=== PATIENT | male | born 1965 | race Caucasian/White ===

== ENCOUNTER 2018-03-29 19:16 | Emergency (ER) | payer OTHER ==
[2018-03-29 19:54] LABS: #Basophils 0.1 thou/uL (0.0-0.2); #Eosinphils 0.3 thou/uL (0.0-0.7); #Monocytes 0.8 thou/uL (0.11-0.59); #Neutrophils 6.3 thou/uL (1.40-6.50); %Basophils 0.8 % (0.0-1.0); %Eosinophils 2.9 % (0.0-10.0); %Lymphocytes 28.5 % (21.0-51.0); %Monocytes 7.8 % (0.0-10.0); Hemoglobin 15.7 g/dL (14.0-18.0); Mean Corpuscular HGB CONC 33.8 g/dL (32.0-36.0); Mean Corpuscular Hemoglobin 28.8 pg (27.0-31.0); Mean Corpuscular Volume 85.2 fL (78.0-98.0); Mean Platelet Volume 7.8 fL (7.4-10.4); Platelet Count 227 thou/uL (130-400); RBC Distribution Width 11.8 % (11.5-14.5); Red Blood Cell (RBC) Count 5.46 mill/uL (4.70-6.10); White Blood Cell (WBC) Count 10.5 thou/uL (4.8-10.8)
--- NOTE | 2018-03-29 20:03 | RAD ---
CHEST TWO VIEW 03/29/18 HISTORY: Chest pain. COMPARISON: None. FINDINGS: Lungs are clear. No pneumothorax or effusion. The cardiac silhouette and mediastinal contours are wit hin normal limits. IMPRESSION: No acute intrathoracic abnormality. POS: [facility]
[2018-03-29 20:16] LABS: ALT (SGPT) 124 U/L (8-55); AST (SGOT) 71 U/L (5-34); Albumin 4.9 g/dL (3.5-5.0); Alkaline Phosphatase 85 U/L (40-150); Anion Gap 12 mmol/L (10-20); BUN (Urea Nitrogen) 16 mg/dL (8.4-25.7); Bilirubin, Total 0.6 mg/dL (0.2-1.2); CK (CPK) 183 U/L (30-200); Calc. Creatinine Clearance 0 mL/min (70-130); Calcium 10.4 mg/dL (7.8-10.44); Carbon Dioxide 27 mmol/L (22-29); Chloride 104 mmol/L (98-107); Estimated GFR-MDRD 65; Globulin 3.2 g/dL (2.4-3.5); Glucose 94 mg/dL (70-105); Potassium 4.4 mmol/L (3.5-5.1); Protein, Total 8.1 g/dL (6.0-8.3); Sodium 139 mmol/L (136-145)
[2018-03-29 20:18] LABS: CKMB 2.4 ng/mL (0-6.6)
[2018-03-29 20:45] LABS: Hemoglobin A1c 5.4 % (4.0-6.0)
--- NOTE | 2018-03-29 21:14 | ULT ---
GALLBLADDER ULTRASOUND: 03/29/18 HISTORY: 52-year-old male with history of right upper quadrant pain. Coarse liver echogenicity, evidence for nonspecific hepatic parenchymal process. The gallbladder demo nstrates no evidence of gallstones, wall thickening, edema or pericholecystic fluid. Common bile duct within normal limits. The visualized pancreas and right kidney are unremarkable. No right upper quad rant abnormal fluid collection. IMPRESSION: Somewhat coarse heterogeneous liver echogenicity, evidence for nonspecific hepatic parenchymal proces s. No evidence of gallstones or other acute process. POS: [facility]
[2018-03-29 21:55] LABS: Bilirubin Negative (Negative); Blood, Urine Negative (Negative); Clarity CLEAR (Clear); Glucose, Urine (Dipstick) Negative (Negative); Leukocyte Negative (Negative); Nitrite Negative (Negative); Protein, Urine (Dipstick) Negative (Neg-Trace); Specific Gravity, Urine 1.017 (1.002-1.036); Urobilinogen 0.2 mg/dL (0.2-1.0)
== END 2018-03-29 22:03 | disposition home or self-care (01) ==
LOC: ERS 19:16
DX: R07.89 Other chest pain (principal); R79.89 Other specified abnormal findings of blood chemistry; I10 Essential (primary) hypertension; F41.9 Anxiety disorder, unspecified; E78.00 Pure hypercholesterolemia, unspecified; Z79.899 Other long term (current) drug therapy
CPT/HCPCS: 36415; 36416; 71046; 76705; 80053; 81003; 82553; 83036; 83690; 84484; 85025; 85379; 93005

== ENCOUNTER 2018-08-04 16:26 | Inpatient (IN) | payer OTHER ==
[~2018-08-04 16:26] MED LIST: Iopamidol 300 61% 100 ML VIAL FS ONE
[2018-08-04] MEDS ORDERED: Morphine 4 MG/ML VIAL ONE (17:25)
[2018-08-04] MEDS ORDERED: Pantoprazole 40 MG VIAL ONE (17:25)
[2018-08-04 17:27] LABS: #Basophils 0.2 thou/uL (0.0-0.2); #Eosinphils 0.5 thou/uL (0.0-0.7); #Lymphocytes 2.8 thou/uL (1.20-3.40); #Monocytes 0.8 thou/uL (0.11-0.59); #Neutrophils 5.3 thou/uL (1.40-6.50); %Basophils 1.7 % (0.0-1.0); %Eosinophils 5.2 % (0.0-10.0); %Lymphocytes 29.2 % (21.0-51.0); %Monocytes 8.6 % (0.0-10.0); %Neutrophils 55.3 % (42.0-75.0); Hemoglobin 16.8 g/dL (14.0-18.0); Mean Corpuscular HGB CONC 33.3 g/dL (32.0-36.0); Mean Corpuscular Hemoglobin 28.3 pg (27.0-31.0); Mean Corpuscular Volume 85.1 fL (78.0-98.0); Mean Platelet Volume 7.5 fL (7.4-10.4); Platelet Count 237 thou/uL (130-400); RBC Distribution Width 12.9 % (11.5-14.5); Red Blood Cell (RBC) Count 5.92 mill/uL (4.70-6.10); White Blood Cell (WBC) Count 9.7 thou/uL (4.8-10.8)
[2018-08-04 17:46] LABS: ALT (SGPT) 327 U/L (8-55); AST (SGOT) 254 U/L (5-34); Alkaline Phosphatase 117 U/L (40-150); Anion Gap 18 mmol/L (10-20); BUN (Urea Nitrogen) 17 mg/dL (8.4-25.7); Bilirubin, Total 1.3 mg/dL (0.2-1.2); Calc. Creatinine Clearance 0 mL/min (70-130); Calcium 10.7 mg/dL (7.8-10.44); Carbon Dioxide 21 mmol/L (22-29); Chloride 103 mmol/L (98-107); Estimated GFR-MDRD 63; Globulin 3.7 g/dL (2.4-3.5); Glucose 97 mg/dL (70-105); Lipase 39 U/L (8-78); Potassium 3.9 mmol/L (3.5-5.1); Protein, Total 8.7 g/dL (6.0-8.3); Sodium 138 mmol/L (136-145)
--- NOTE | 2018-08-04 18:48 | RAD ---
AP CHEST: History: Hypertension. Right upper quadrant pain. Abdominal pain. FINDINGS: AP portable view of the chest obtained. The lungs are well aerated. No evidence of active intrathoracic disease seen. No evidence of effusion s, pneumonia, or pneumothorax seen. IMPRESSION: Unremarkable AP view chest. POS: [facility]
--- NOTE | 2018-08-04 19:00 | ULT ---
EXAM: RIGHT UPPER QUADRANT ULTRASOUND: History: Abdominal pain, nausea, and vomiting. Technique: Multiple longitudinal and transverse images of the right upper quadrant of the abdomen is obtained using a multihertz curvilinear transducer. Real-time, color flow, and spectral waveform dopp ler analysis used to evaluate the right upper quadrant. FINDINGS: Images demonstrate fibrofatty changes seen in the liver. There is a small area of hypodensity seen al clint the medial posterior aspect of the hepatic parenchyma adjacent to the gallbladder. This may repre sent a hepatic parenchymal mass or lesion. No evidence of intrahepatic biliary dilatation seen. The common bile duct is of normal size measuring 5.4 mm. No evidence of gallstones seen. Normal hepatopedal flow is seen. The pancreas is difficult to assess due to overlying bowel gas. The right kidney is unremarkable. IMPRESSION: Hypoechoic lesion measuring approximately 2 x 1.3 cm within the hepatic parenchyma. POS: [facility]
[2018-08-04] MEDS ORDERED: Lorazepam 2 MG/ML VIAL ONE (20:21)
--- NOTE | 2018-08-04 23:04 | PDOC.FPRHP ---
- History of Present Illness Chief Complaint: Abdominal Pain History of Present Illness: Mr Heller is a 52yo male with pmh of HTN, HLD presenting with constant burning abdominal pain. Report abdominal pain has been present after 5 minutes after meals for the last several months but usually only lasts 10-15min. Today it lasted much longer. It does not radiate. Reports 20lb wt loss over the last 2 weeks. Has had normal PO intake during this time with the exception of the last 2 days in which appetite has been decreased. BP is elevated. Pt reports not taking Amlodipine Sunday. ED Course: Ativan 1mg IV for Anxiety related to contrast for CT. Protonix 40mg. 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 Former smoker for 35yrs, 2 pks per day. Quit 3 years ago - Review of Systems General: reports: weight/appetite/sleep changes (20lb wt loss over last 2 weeks) . denies: fever/chills Eyes: denies: eye pain, vision changes ENT: denies: nasal congestion, rhinorrhea Respiratory: denies: cough, congestion, shortness of breath Cardiovascular: reports: palpitation (when having burning pain). denies: chest pain, edema Gastrointestinal: reports: abdominal pain. denies: nausea, vomiting, diarrhea, constipation Genitourinary: denies: dysuria, other (no hematuria) Skin: denies: rashes, lesions Musculoskeletal: denies: pain, swelling Neurological: denies: numbness, weakness Psychological: reports: anxiety. denies: depression - Vital signs BP: 177/104 HR: 72 RR: 16 Tmax: 97.9 Pox: 94% on RA Wt: 102kg - Physical Exam Constitutional: NAD, awake, alert and oriented, well developed HEENT: normocephalic and atraumatic, conjunctiva clear, MMM, oropharynx clear Neck: supple, trachea midline Heart: RRR, no murmurs/rubs/gallops Lungs: CTAB, no respiratory distress Abdomen: soft, bowel sounds present -Abdomen: Marked tenderness with palpation of upper right quadrant. No rebound or rigidity. Musculoskeletal: normal structure, normal tone, ROM grossly normal Neurological: no focal deficit Skin: no rash/lesions, good turgor, capillary refill <2 seconds Psychiatric: normal mood and affect, good judgment and insight, intact recent and remote memory FMR H&P: Results - Labs Result Diagrams: 08/04/18 17:20 08/05/18 08:19 Lab results: WBC 9.7 thou/uL (4.8-10.8) 08/04/18 17:20 Hgb 16.8 g/dL (14.0-18.0) 08/04/18 17:20 Hct 50.4 % (42.0-52.0) 08/04/18 17:20 MCV 85.1 fL (78.0-98.0) 08/04/18 17:20 Plt Count 237 thou/uL (130-400) 08/04/18 17:20 Neutrophils % 55.3 % (42.0-75.0) 08/04/18 17:20 Sodium 138 mmol/L (136-145) 08/04/18 17:20 Potassium 3.9 mmol/L (3.5-5.1) 08/04/18 17:20 Chloride 103 mmol/L (98-107) 08/04/18 17:20 Carbon Dioxide 21 mmol/L (22-29) L 08/04/18 17:20 BUN 17 mg/dL (8.4-25.7) 08/04/18 17:20 Creatinine 1.22 mg/dL (0.7-1.3) 08/04/18 17:20 Glucose 97 mg/dL (70-105) 08/04/18 17:20 Calcium 10.7 mg/dL (7.8-10.44) H 08/04/18 17:20 Total Bilirubin 1.3 mg/dL (0.2-1.2) H 08/04/18 17:20 AST 254 U/L (5-34) H 08/04/18 17:20 ALT 327 U/L (8-55) H 08/04/18 17:20 Alkaline Phosphatase 117 U/L (40-150) 08/04/18 17:20 Serum Total Protein 8.7 g/dL (6.0-8.3) H 08/04/18 17:20 Albumin 5.0 g/dL (3.5-5.0) 08/04/18 17:20 Lipase 39 U/L (8-78) 08/04/18 17:20 - Radiology Interpretation Chest x-ray Status: report reviewed by me Additional comment: No acute process CT scan - abdomen Status: report reviewed by me Additional comment: Subtle possible perigallbladder hepatic lesion. Small (11mm) right adrenal lesion US - abdomen Status: report reviewed by me Additional comment: Hypoechoic lesion measuring approx 2 x 1.3cm within the heptic parenchyma. Fibrofatty changes in liver. FMR H&P: A/P - Problem List (1) Hepatic lesion Current Visit: Yes Status: Acute Code(s): K76.9 - LIVER DISEASE, UNSPECIFIED - Plan 52yo male with pmh of HTN, HLD presenting with abdominal pain found to have liver lesion suspicious for cancer Liver Lesion - Abdominal US: hypoechoic lesion 2 x 1.3cm w/I hepatic parenchyma - CT: Subtle possible perigallbladder hepatic lesion. Small (11mm) right adrenal lesion - Tramadol & Ibuprofen PRN for pain - MRI with and without contrast ordered for AM - Admit to medical Hepatitis - AST/ALT: 254/327 - Likely 2/2 to fatty liver, will order Hep studies - Consider ordering smooth muscle antibody HTN - Pressures elevated - Continue home Amlodipine HLD Code Status: FULL DVT ppx: Lovenox [facility]CP: [facility] H&P: Upper Level - Pertinent history 52 yo male presenting from [facility] ER for abdominal mass. He Reports a history of abdominal pain for at least a few months, typically occurs <5min after eating, burning pain. Has tried taking ibuprofen, Prilosec/Nexium with some improvement. Sunday night the pain started and did not quit. Denies N/V/D, changes in diet. Endorses 20lb wt loss in the past 2 weeks without loss in appetite. Family history: dad pancreatic cancer and CHF Sister: leukemia Mom: glioma - Pertinent findings 177/104 HR: 72 TEMP: 97.9 94% on RA GEN: NAD, alert oriented x4 CARD: RRR, no mgr PULM: CTAB EXT: no cyanosis or edema ABD: TTP in RUQ with no radiation, liver borders enlarged, no peritoneal signs AST: 254 ALT: 327 Tbili: 1.3 See imaging results of US abdomen and CT abdomen in Dr. Valentine' note. Briefly, CT abd shows subtle possible clemente gallbladder hepatic lesion, small right adrenal lesion, rectal mucosal thickening. Recommended hepatic MRI with and without Gadolinium. - Plan Date/Time: 08/04/182 I, Christophe Puri DO, have evaluated this patient and agree with findings/plan as outlined by internet and e business project manager resident. Pertinent changes/additions are listed here. #hepatitis with clemente gallbladder hepatic lesion on imaging -AST/ALT elevated from 5 months ago -paired with patient history of 20lb unintentional wt loss over the past couple weeks, we would like to get further imaging to better characterize the current lesion -plan MRI w/wo in the morning -hepatitis panel #HTN #hx of fatty liver Addendum - Attending - Attending Attestation Date/Time: 08/05/18917 I personally evaluated the patient and discussed the management with Dr. Valentine /Jaxson. I agree with the History, Examination, Assessment and Plan documented above with any addition or exceptions noted below. Patient here with worsening RUQ pain assocaited with any diet as well as weight loss over the last 1 month despite normal PO intake. His U/S showed possible liver mass, confirmed with CT scan. He also appears to have some mass effect or inflammation in the rectum. Patient does endorse some mild bowel changes, tenesmus, and has never had colonoscopy. He is going for MRI abdomen this morning to further characterize the liver lesion, and we will consult GI to see if they will investigate this rectal lesion as there is suspicion for malignancy vs. metastatic disease. NPO until studies complete. Pain control as needed. Mild increased BP and will initiate meds as needed.
--- NOTE | 2018-08-04 23:23 | CT ---
CT ABDOMEN AND PELVIS WITH AND WITHOUT IV CONTRAST: History: Right upper quadrant pain, weight loss. Technique: Precontrast enhanced CT images of the abdomen and dynamic CT images of the abdomen perform ed. Delayed images are also obtained through the pelvis. FINDINGS: The lung bases are unremarkable. There is diffuse hepatic steatosis. Just to the right of the gallbladder on axial image 26 there may be a slight area of hyperdensity see n on the precontrast enhanced images. This area does not significantly enhance on the delayed images. It may represent an area of hepatic heterogeneity although I cannot exclude the possibility of small hepatic mass. Correlate with follow up CT images as well as possible consideration of pre and post c ontrast enhanced MRI images of the liver. The spleen is unremarkable. No definite evidence of gallbladder abnormality is seen. The pancreas is unremarkable. There is an approximately 11 mm area of nodular density in the right adrenal gland. Correlate with fo llow up images. This lesion should be evaluated with follow up CT in 6 months to evaluate for interva l change. The left adrenal gland is unremarkable. Incidentally noted small area of hypodensity seen in the left kidney, axial image 30. This may represent a cortical cyst. The lesion is too small to characterize. Diameter measures approximately 8.4 mm. The kidneys are unremarkable. Atherosclerotic calcifications seen in the abdominal aorta. The SMA and celiac are patent. The LATRICE is patent. Multilevel lumbar changes of spondylosis seen. No significant evidence of pelvis masses or lesions seen. Incidentally noted descending colonic diverticulosis is present. Incidentally noted focal area of rectal mucosal thickening is seen on axial image 80. Correlate with clinical exam and digital exam, as well as direct visualization if clinically indicated. I cannot exc lude the possibility of mucosal based lesion in the rectum. IMPRESSION: 1. Subtle possible clemente gallbladder hepatic lesion. Correlate with follow up CT images as well as con e business specialist hepatic MRI with and without Gadolinium. 2. Small right adrenal lesion. Follow up images recommended. POS: [facility]
[2018-08-04] MEDS ORDERED: Acetaminophen 325 MG TAB PO PRN (23:53)
[2018-08-04] MEDS ORDERED: Ondansetron PF 4 MG/2 ML Vial IVP PRN (23:53)
[2018-08-04] MEDS ORDERED: Ondansetron ODT 4 MG TAB SL PRN (23:53)
[2018-08-05] VITALS: BMI 33.3
[2018-08-05] MEDS ORDERED: Ibuprofen 600 MG TAB PO PRN (00:13)
[2018-08-05] MEDS ORDERED: Ketorolac Tromethamine 30 MG/ML VIAL IVP PRN (00:13)
[2018-08-05] MEDS: Sodium Chloride 0.9% 1,000 ML IV SCH ×2 (00:22→07:20)
[2018-08-05] MEDS: Enoxaparin Sodium 40 MG/0.4 ML SYRINGE SC SCH (07:22)
--- NOTE | 2018-08-05 07:49 | PDOC.FM ---
- Subjective Subjective: Pt feels well but hungry this AM. He is anxious to find results from MRI today but otherwise well. No new complaints at this time. no fever/chills no cp no palpitations, no nausea/vomiting - Objective MAR Reviewed: Yes Vital Signs & Weight: Vital Signs (12 hours) Temp Pulse Resp BP Pulse Ox 08/05/18 04:13 97.8 F 69 18 157/82 H 94 L 08/05/18 01:05 159/79 H 08/04/18 23:50 94 L 08/04/18 23:40 97.9 F 72 16 177/104 H 94 L Weight Weight 102.512 kg I&O: 08/04/18 08/05/18 08/06/18 06:59 06:59 06:59 Intake Total 755 Balance 755 Result Diagrams: 08/04/18 17:20 08/05/18 08:19 Phys Exam - Physical Examination Constitutional: NAD HEENT: moist MMs, sclera anicteric Neck: no nodes, no JVD Respiratory: no wheezing, clear to auscultation bilateral Cardiovascular: RRR, no significant murmur Gastrointestinal: soft moderate TTP in RUQ, no rebound tenderness, no guarding Musculoskeletal: no edema, pulses present Neurological: non-focal, normal sensation Lymphatic: no nodes Psychiatric: normal affect, A&O x 3 Skin: no rash, normal turgor Dx/Plan (1) Hepatic lesion Code(s): K76.9 - LIVER DISEASE, UNSPECIFIED Status: Acute (2) Hepatitis Status: Acute (3) HTN (hypertension) Code(s): I10 - ESSENTIAL (PRIMARY) HYPERTENSION Status: Acute (4) HLD (hyperlipidemia) Code(s): E78.5 - HYPERLIPIDEMIA, UNSPECIFIED Status: Acute - Plan Plan: 52yo male with pmh of HTN, HLD presenting with abdominal pain found to have liver lesion suspicious for cancer Liver Lesion A- at least 1 month hx of GI symptoms with radiographic evidence suspicious for malignancy. Abdominal US: hypoechoic lesion 2 x 1.3cm w/I hepatic parenchyma. CT : Subtle possible perigallbladder hepatic lesion. Small (11mm) right adrenal lesion, also showed mucosal thickening in Rectum P- Tramadol & Ibuprofen PRN for pain - MRI pending - GI consult considering pt has not had colonoscopy and has rectal abnormality on imaging Hepatitis A- AST/ALT: 254/327. Likely 2/2 to fatty liver considering RUQ US P- awaiting hepatitis studies HTN A- Pressures continue elevated P- Continue home Amlodipine - monitor BP and consider increasing regimen HLD - Hx of hld but no home meds listed, will f/u with pt Code Status: FULL DVT ppx: Lovenox PCP: [facility] Addendum - Attending - Attending Attestation Date/Time: 08/05/18 7018 I personally evaluated the patient and discussed the management with Dr. Cook. I agree with the History, Examination, Assessment and Plan documented above with any addition or exceptions noted below.
[2018-08-05] MEDS ORDERED: Lorazepam 2 MG/ML VIAL SLOW IVP SCH (08:15)
[2018-08-05] MEDS ORDERED: Gadobenate Dimeglumine 529 MG/1 ML (20ML VIAL) ONE (08:22)
[2018-08-05 08:51] LABS: ALT (SGPT) 214 U/L (8-55); AST (SGOT) 151 U/L (5-34); Albumin 4.1 g/dL (3.5-5.0); Alkaline Phosphatase 88 U/L (40-150); Anion Gap 12 mmol/L (10-20); BUN (Urea Nitrogen) 15 mg/dL (8.4-25.7); Bilirubin, Total 1.4 mg/dL (0.2-1.2); Calc. Creatinine Clearance 115 mL/min (70-130); Calcium 9.3 mg/dL (7.8-10.44); Carbon Dioxide 24 mmol/L (22-29); Chloride 105 mmol/L (98-107); Estimated GFR-MDRD 71; Globulin 2.7 g/dL (2.4-3.5); Glucose 116 mg/dL (70-105); Potassium 3.8 mmol/L (3.5-5.1); Protein, Total 6.8 g/dL (6.0-8.3); Sodium 137 mmol/L (136-145)
[2018-08-05] MEDS: Amlodipine 5 MG TAB PO SCH ×2 (09:05→17:26)
[2018-08-05 09:11] LABS: HBCM Index 0.07 S/CO (0-0.79); HBSAg Index 0.22 S/CO (0-0.99); Hep A IgM AB Non-Reactive (NonReactive); Hep A IgM S/CO 0.23 S/CO (0-0.79); Hep B Core Total Ab Non-Reactive (NonReactive); Hep B Core Total Index 0.05 S/CO (0-0.79); Hep B Surf Ag Non-Reactive S/CO (NonReactive); Hep C IgG Ab Non-Reactive (NonReactive); Hep C Index 0.19 S/CO (0-0.79); Hepatitis B Core IgM Abs Non-Reactive (NonReactive)
--- NOTE | 2018-08-05 14:54 | MRI ---
MRI ABDOMEN WITH AND WITHOUT IV CONTRAST: HISTORY: Liver lesion, elevated renal function tests, abnormal CT scan and gallbladder ultrasound of previous day. FINDINGS: There is an 8 mm lesion in the dome of the liver with low T1 and high T2 signal and no postcontrast e nhancement, consistent with a small cyst. There is diffuse reduction in the signal of the liver pare nchyma on the [id number] images compared to the in-phase images, consistent with fatty infiltration of the liver. The gall bladder, spleen, pancreas, left adrenal gland, and the right kidney are normal. There is a 1 cm right adrenal nodule which demonstrates loss of signal on [id number] imaging, consistent with a benign adenoma. There is a 12 mm cyst in the left kidney (low T1, high T2 signal and no postcontras t enhancement). No free fluid or lymphadenopathy is seen. There is no evidence of aneurysmal dilatation of the abdom inal aorta. No abnormal areas of postcontrast enhancement identified. The bone marrow signal is norm al. IMPRESSION: 1. Fatty infiltration of the liver. 2. Tiny hepatic cyst. 3. Left renal cyst. 4. Benign 1cm right adrenal adenoma. POS: [facility]
[2018-08-05 16:08] LABS: Iron 88 ug/dL (65-175); Iron Binding Capacity, Total 314 mcg/dL (261-462)
--- NOTE | 2018-08-05 17:58 | CON ---
DATE OF CONSULTATION: 08/05/2018 CHIEF COMPLAINT: Abdominal pain. HISTORY OF PRESENT ILLNESS: Mr. Heller is a 52-year-old man, who presented to the emergency room with right upper quadrant epigastric abdominal pain. This pain first started about a year ago when he lifted a bookcase and felt a sudden tearing or burning pain in the right upper quadrant toward the midline below the right ribs. This pain lasted for several minutes and then went away. Couple of months ago, he started having this similar burning pain in the right upper side that would occur about 5 minutes after eating and lasts for 15 to 20 minutes. This pain would go on a couple of times per week. However, on Sunday night, 3 nights ago, he had the onset of the pain and it remained persistent and severe for several hours. He ultimately came to the emergency room yesterday with recurrence of the pain and abdominal imaging was performed. He had an ultrasound of his right upper quadrant that showed normal bile ducts and no evidence of gallstones or gallbladder inflammation. Incidentally, a 2 x 1.3 cm hypoechoic lesion was noted in the liver adjacent to the gallbladder. He had a CT scan of the abdomen and pelvis after that again showed a subtle hepatic lesion in the same area, but there is no other source for his abdominal pain. An 11 mm nodular density was noted in the right adrenal gland. There is also a focal area of rectal mucosal thickening raising the possibility of a rectal mass or polyp. The patient has had no fever. No nausea or vomiting with this. He has had 5 or 6 formed stools per day up until after he was having this CT scan yesterday. Since then, he has had a few liquidy stools. He did have an MRI performed to further evaluate the liver lesions, which showed an 8 mm cyst in the dome of the liver. Fatty infiltration was noted in the liver. No lesion was specifically seen near the gallbladder as described on the CT and ultrasound. The adrenal nodule appeared to be a benign adrenal adenoma. This measures 1 cm. The patient has had no blood in the stool. No black stools. He does report a 20-pound weight loss over the last couple weeks that his appetite has not been significantly changed and he has been eating his baseline diet for the most part. PAST MEDICAL HISTORY: Hypertension, hyperlipidemia, pneumothorax, meningitis as a child, anxiety, and fatty liver disease. PAST SURGICAL HISTORY: Appendectomy and tonsillectomy. ALLERGIES: PENICILLIN. MEDICATIONS: Prior to admission, amlodipine. FAMILY HISTORY: Positive for father with pancreatic cancer. Mother with a glioma and sister with acute leukemia. They are all . SOCIAL HISTORY: He drinks a 6 pack a year at most, has never been heavier drinker. He quit smoking 3 years ago, but smoked up to 2 packs per day for 35 years prior to that. He does smoke marijuana occasionally when he has a severe headaches and otherwise no drug use. No history of IV drug use. He does have multiple tattoos. REVIEW OF SYSTEMS: Negative x10 systems reviewed except as stated in the history of present illness. PHYSICAL EXAMINATION: VITAL SIGNS: Temperature 98.0, pulse 68, and blood pressure 173/84. GENERAL: He is in no acute distress. Alert and oriented x3. HEENT: Eyes have no scleral icterus. Oropharynx is clear without lesions. No cervical or supraclavicular lymphadenopathy. LUNGS: Clear to auscultation bilaterally. HEART: Regular rate and rhythm without murmur. ABDOMEN: Soft, nontender, and nondistended. Bowel sounds are present. EXTREMITIES: No lower extremity edema. NEUROLOGIC: Cranial nerves are grossly intact. LABORATORY DATA: White blood cell count 9.7, hemoglobin 16.8, platelets 237. Creatinine 1.1, bilirubin 1.4, AST 151 and down from 254 yesterday, ALT 214 and down from 327 yesterday, alkaline phosphatase 88, albumin 4.1, globulin 2.7, and lipase 39. Acute viral hepatitis A, B, and C panel are negative. IMPRESSION: 1. Right upper quadrant epigastric abdominal pain. This pain has been postprandial lately; however, started when he had a tearing and burning sensation when he was lifting a cabinet. There was no evidence of gallbladder abnormality by ultrasound. We will plan upper endoscopy to rule out peptic ulcer or gastritis. If that is negative, a HIDA scan could be considered. He does have acute elevation of his liver tests and right upper quadrant pain related to that is also possible from distention of [place]'s capsule. 2. Abnormal CT scan showing a mucosal thickening in the rectum. We will plan colonoscopy to rule out rectal tumor or mass. 3. Abnormal liver function tests. He has primarily a hepatocellular injury pattern with ALT greater than 300 and AST of 250. Alkaline phosphatase is normal with a minimally elevated bilirubin. He has a history of fatty liver disease; however, these numbers are higher than would be typical for fatty liver disease alone. He does not take any medications expected to cause this finding at baseline. His bile ducts were of normal caliber by ultrasound. Acute viral hepatitis panel is negative. I will send additional lab work checking for other causes of liver disease. However, it is possible this could just be related to his fatty liver. We will rule out autoimmune hepatitis. However, his globulin is not elevated. RECOMMENDATIONS: 1. EGD and colonoscopy tomorrow. 2. We will send additional blood work to further evaluate the elevated liver tests. 3. Add proton pump inhibitor for now. Job ID: [id number]
[2018-08-05] MEDS: GoLYTELY 4,000 ml Bottle PO SCH (18:22)
[2018-08-06] MEDS: GoLYTELY 4,000 ml Bottle PO SCH (05:24)
--- NOTE | 2018-08-06 06:56 | PDOC.FM ---
- Subjective Subjective: Pt complains of continued RUQ abdominal pain. He states it may have improved slightly but not much. Has plans for upper and lower scopes today. Otherwise pt has no complaints. no fever/chills, no nausea/vomiting - Objective MAR Reviewed: Yes Vital Signs & Weight: Vital Signs (12 hours) Temp Pulse Resp BP Pulse Ox 08/06/18 04:46 98.7 F 60 20 133/84 97 08/06/18 00:00 98.1 F 57 L 20 155/84 H 95 08/05/18 20:00 98.0 F 67 20 162/81 H 97 08/05/18 19:50 97 Weight Weight 102.512 kg I&O: 08/04/18 08/05/18 08/06/18 06:59 06:59 06:59 Intake Total 755 3940 Balance 755 3940 Result Diagrams: 08/04/18 17:20 08/05/18 08:19 Phys Exam - Physical Examination Constitutional: NAD HEENT: moist MMs, sclera anicteric Neck: no JVD, supple Respiratory: no wheezing, clear to auscultation bilateral Cardiovascular: RRR, no significant murmur Gastrointestinal: soft moderat RUQ TTP, no guarding Musculoskeletal: no edema, pulses present Neurological: normal sensation, moves all 4 limbs Psychiatric: normal affect, A&O x 3 Skin: no rash, normal turgor Dx/Plan (1) Hepatic lesion Code(s): K76.9 - LIVER DISEASE, UNSPECIFIED Status: Acute (2) Hepatitis Status: Acute (3) HTN (hypertension) Code(s): I10 - ESSENTIAL (PRIMARY) HYPERTENSION Status: Acute (4) HLD (hyperlipidemia) Code(s): E78.5 - HYPERLIPIDEMIA, UNSPECIFIED Status: Acute - Plan Plan: 52yo male with pmh of HTN, HLD presenting with abdominal pain RUQ with elevated transaminases A- Pain caused by hepatitis vs. PUD. GI is consulted. Pt has at least 1 month hx of GI symptoms with radiographic evidence suspicious for malignancy. Abdominal US: hypoechoic lesion 2 x 1.3cm w/I hepatic parenchyma. CT: Subtle possible perigallbladder hepatic lesion. Small (11mm) right adrenal lesion, also showed mucosal thickening in Rectum. MRI shows liver cysts and no evidence for suspicious masses. AST/ALT: 254/327--> 151/214. Hep A/B/C studies are all negative. GI is consulted and recs are much appreciated. P- Tramadol & Ibuprofen PRN for pain - f/u on autoimmune liver studies - pt schduled for upper and lower scopes today - f/u GI recs HTN A- Pressures improved today P- Continue home Amlodipine HLD - Hx of hld but no home meds listed, will f/u with pt Code Status: FULL DVT ppx: Lovenox PCP: [facility] Addendum - Attending - Attending Attestation Date/Time: 08/06/18 6091 I personally evaluated the patient and discussed the management with Dr. Cook. I agree with the History, Examination, Assessment and Plan documented above with any addition or exceptions noted below. Patient here originally for RUQ pain and possible liver mass. MRI has now shown fatty liver and cyst. GI on board and completing workup for less common causes of hepatitis as his acute viral panel was negative. Undergoing EGD and Colonoscopy today to evaluate for possible PUD and to further characterize the rectal abnormality seen on CT. Await further recs from GI.
[2018-08-06] MEDS ORDERED: Lidocaine 1% PF 5 ML VIAL ONE (08:26)
[2018-08-06] MEDS ORDERED: PROPOFOL 200 MG/20 ML VIAL ONE (08:26)
[2018-08-06] MEDS: Amlodipine 5 MG TAB PO SCH (10:57)
--- NOTE | 2018-08-06 19:47 | OP ---
DATE OF PROCEDURE: 08/06/2018 PREPROCEDURE DIAGNOSES: 1. Epigastric right upper quadrant pain of unclear etiology. 2. CT with question rectal thickening. POSTPROCEDURE DIAGNOSES: 1. Duodenal nodule 3 mm superior aspect duodenal bulb, biopsied and submitted to Pathology. 2. Submucosal duodenal nodule 5 mm in the floor of the bulb, biopsied [id number] technique and submitted to Pathology in a different jar. 3. Slightly irregular squamocolumnar junction. Biopsied to rule out short-segment Russ's. 4. Otherwise normal esophagogastroduodenoscopy with no signs or findings to suggest a cause of upper abdominal pain. 5. Colonoscopy was notable for diverticulosis coli throughout the sigmoid colon and descending colon. The exam is otherwise normal. There was no rectal masses noted. RECOMMENDATIONS: Consider evaluation of biliary tree source of the patient's pain. HIDA scan be reasonable. May consider General Surgery consultation. ANESTHESIA: TIVA. DESCRIPTION OF PROCEDURE: The patient was informed of the risks, benefits, and possible complications of endoscopy including perforation, risk of bleeding, reaction to medication, and aspiration, informed consent was obtained. The patient was brought to the endoscopy suite, where he was sedated in gradual fashion. Once he was comfortable, a bite block was placed inside his orifice. The endoscope was advanced to the esophagus, stomach, and the second and third portion of duodenum and slowly removed. At the GE junction, there was slightly irregular squamocolumnar junction with just above the proximal aspect of the gastric fold. This was biopsied to rule out short-segment Russ's. The stomach was entered and found to be normal in forward and retroflexed views. There was a submucosal lesion in the bulb of the duodenum just inside of the pyloric channel about 3 to 5 mm in sizes were biopsied by a [id number] technique and submitted to Pathology. There was also a small 2 to 3 mm nodule in the superior aspect of the bulb, which was biopsied in a different and placed in a separate jar. The retroflexed views in the stomach were removed. The scope was removed. The patient tolerated the procedure well. There were no complications. This patient was turned to the room and a rectal examination was performed, which revealed endoscope was advanced through the anal canal through the colon to the cecum, which identified by ileocecal valve and appendiceal orifice. The procedure was prolonged somewhat by the fact that we had some irrigation problems and we switched irrigation units, but then we were able to complete the exam and we only found diverticulosis and some mucus in the sigmoid and descending colon. There was no rectal masses in forward and retroflexed views. The scope was removed. The patient tolerated the procedure well. There were no complications. Job ID: [id number]
--- NOTE | 2018-08-07 07:39 | PDOC.FM ---
- Subjective Subjective: Pt reports feeling well with good rest after his scopes yesterday. Pt reports that pain increased mildly after eating for the first time since admission but is otherwise well without concerns. no fever/chills, no nausea/vomiting - Objective MAR Reviewed: Yes Vital Signs & Weight: Vital Signs (12 hours) Temp Pulse Resp BP BP Pulse Ox 08/07/18 07:16 98 F 51 L 18 171/83 H 92 L 08/07/18 04:00 98.5 F 58 L 20 168/71 H 92 L 08/07/18 00:54 98.5 F 62 20 160/73 H 94 L 08/06/18 20:00 98.4 F 85 20 122/71 95 Weight Weight 102.512 kg I&O: 08/06/18 08/07/18 08/08/18 06:59 06:59 06:59 Intake Total 3940 951 Balance 3940 951 Result Diagrams: 08/07/18 08:04 08/07/18 08:04 Phys Exam - Physical Examination Constitutional: NAD HEENT: moist MMs, sclera anicteric Neck: no nodes, no JVD Respiratory: no wheezing, clear to auscultation bilateral Cardiovascular: RRR, no significant murmur Gastrointestinal: soft continued but stable RUQ TTP Musculoskeletal: no edema, pulses present Neurological: non-focal, normal sensation Lymphatic: no nodes Psychiatric: normal affect, A&O x 3 Skin: no rash, normal turgor Dx/Plan (1) Hepatic lesion Code(s): K76.9 - LIVER DISEASE, UNSPECIFIED Status: Acute (2) Hepatitis Status: Acute (3) HTN (hypertension) Code(s): I10 - ESSENTIAL (PRIMARY) HYPERTENSION Status: Acute (4) HLD (hyperlipidemia) Code(s): E78.5 - HYPERLIPIDEMIA, UNSPECIFIED Status: Acute - Plan Plan: 52yo male with pmh of HTN, HLD presenting with abdominal pain RUQ pain with elevated transaminases A- Colonoscopy and EGD overall unremarkable (diverticulosis, duodenal polyps, no rectal mass). Etiology of pain unclear. Pt has at least 1 month hx of GI symptoms with radiographic evidence suspicious for malignancy. Abdominal US: hypoechoic lesion 2 x 1.3cm w/I hepatic parenchyma. CT: Subtle possible perigallbladder hepatic lesion. Small (11mm) right adrenal lesion, also showed mucosal thickening in Rectum. MRI shows liver cysts and no evidence for suspicious masses. AST/ALT: 254/327--> 151/214. Hep A/B/C studies are all negative. GI is consulted and recs are much appreciated. P- Tramadol & Ibuprofen PRN for pain - f/u on autoimmune liver studies - HIDA scan today per GI recs - f/u GI recs HTN A- Pressures improved today P- Continue home Amlodipine Code Status: FULL DVT ppx: Lovenox PCP: [facility] Addendum - Attending - Attending Attestation Date/Time: 08/07/18 6805 I personally evaluated the patient and discussed the management with Dr. Cook. I agree with the History, Examination, Assessment and Plan documented above with any addition or exceptions noted below. Patient improved. EGD and Colonoscopy completed and duodenal pathology pending, but no evidence for occult GI malignancy. Autoimmune studies pending, as is HIDA scan to evaluate for biliary issues. Further mgmt per GI recs. Anticipate he is nearing point of discharge pending no need for GenSurg consult after HIDA.
[2018-08-07 08:32] LABS: #Eosinphils 0.3 thou/uL (0.0-0.7); #Lymphocytes 2.4 thou/uL (1.20-3.40); #Monocytes 0.8 thou/uL (0.11-0.59); #Neutrophils 4.2 thou/uL (1.40-6.50); %Basophils 0.3 % (0.0-1.0); %Eosinophils 4.2 % (0.0-10.0); %Lymphocytes 30.9 % (21.0-51.0); %Monocytes 9.9 % (0.0-10.0); %Neutrophils 54.6 % (42.0-75.0); Hemoglobin 13.2 g/dL (14.0-18.0); Mean Corpuscular HGB CONC 32.7 g/dL (32.0-36.0); Mean Corpuscular Hemoglobin 28.3 pg (27.0-31.0); Mean Corpuscular Volume 86.3 fL (78.0-98.0); Mean Platelet Volume 8.2 fL (7.4-10.4); Platelet Count 150 thou/uL (130-400); RBC Distribution Width 12.3 % (11.5-14.5); Red Blood Cell (RBC) Count 4.68 mill/uL (4.70-6.10); White Blood Cell (WBC) Count 7.6 thou/uL (4.8-10.8)
[2018-08-07 08:44] LABS: ALT (SGPT) 172 U/L (8-55); AST (SGOT) 117 U/L (5-34); Albumin 4.1 g/dL (3.5-5.0); Alkaline Phosphatase 87 U/L (40-150); Anion Gap 13 mmol/L (10-20); BUN (Urea Nitrogen) 12 mg/dL (8.4-25.7); Bilirubin, Total 1.1 mg/dL (0.2-1.2); Calc. Creatinine Clearance 120 mL/min (70-130); Calcium 9.4 mg/dL (7.8-10.44); Carbon Dioxide 23 mmol/L (22-29); Chloride 105 mmol/L (98-107); Estimated GFR-MDRD 74; Globulin 2.8 g/dL (2.4-3.5); Glucose 97 mg/dL (70-105); Potassium 3.4 mmol/L (3.5-5.1); Protein, Total 6.9 g/dL (6.0-8.3); Sodium 138 mmol/L (136-145)
[2018-08-07] MEDS: Enoxaparin Sodium 40 MG/0.4 ML SYRINGE SC SCH (11:06)
[2018-08-07] MEDS: Amlodipine 5 MG TAB PO SCH (11:06)
--- NOTE | 2018-08-07 12:25 | NM ---
HEPATOBILIARY SCAN: Date: 08/07/18 HISTORY: 52-year-old male with right upper quadrant pain. No gallstones on ultrasound of 08/04/18. RADIOPHARMACEUTICAL: 5 mCi technetium-99m mebrofenin injected intravenously. FINDINGS: There is good tracer extraction by the liver with prompt excretion into the biliary tract and small b owel loops, and normal filling of the gallbladder. The calculated gallbladder ejection fraction fract ure an oral fatty meal measures 52%. IMPRESSION: Normal exam. POS: ALEXA
[2018-08-07 17:02] LABS: EliA Vaculitis New Method **** NEW METHOD ****; Mitochondrial Ab 0.5 U/mL (<4 Negative)
--- NOTE | 2018-08-07 18:14 | PRG ---
DATE OF SERVICE: 08/07/2018 SUBJECTIVE: Mr. Heller ate a chicken fried steak after his endoscopy yesterday, which he tolerated. He had a cheeseburger today, which he tolerated. His abdominal pain is improved overall and has not completely resolved. He has had no nausea or vomiting. No blood in the stool. OBJECTIVE: VITAL SIGNS: Temperature 98.0, pulse 62, blood pressure 152/84. GENERAL: He is in no acute distress. Alert and oriented x3. LUNGS: Clear to auscultation bilaterally. HEART: Regular rate and rhythm without murmur. ABDOMEN: Soft. Mild tenderness in the epigastric region without guarding. Bowel sounds are present. EXTREMITIES: No lower extremity edema. LABORATORY DATA: White blood cell count 7.6, hemoglobin 13.2, platelets 150. Creatinine 1.06, bilirubin 1.1, AST 117, ALT 172, alkaline phosphatase 87. Mitochondrial antibody is negative. Smooth muscle antibody is negative. Iron saturation is not elevated. Ceruloplasmin is normal. Alpha-1 antitrypsin level is normal. Acute viral hepatitis panel is negative. IMPRESSION: 1. Epigastric to right upper quadrant abdominal pain. His pain is improved now and he is tolerating fatty meals. He had a negative gallbladder ultrasound and the HIDA scan today shows no evidence of cholecystitis. There is no evidence that his gallbladder is the source for his pain at this point. Upper and lower endoscopy were also negative for an obvious source for his pain. He had a couple of small submucosal nodules noted by esophagogastroduodenoscopy incidentally, which were biopsied and are pending. No ulcers or gastritis or reason for his pain is directly identified. Colonoscopy shows diverticulosis. However, imaging showed no evidence of acute diverticulitis and he has no tenderness over these areas. At this point, I would just treat empirically with a proton pump inhibitor for acid suppression and follow up in the office if his pain continues to improve without further intervention. 2. Abnormal liver function tests. Lab work is negative for other causes of liver disease. Imaging shows fatty liver. This may have been a flare of the liver tests related to fatty liver disease. At this point, his liver tests are trending down and he is symptomatically improved. This can be followed up in the office as an outpatient. 3. Submucosal duodenal nodule, but pathology pending. 4. Low-density lesion noted by ultrasound and CT scan near the gallbladder. However, MRI does not show a lesion. This could be an area of focal fat sparing. No obvious malignancy is identified in this area. Again, this can be followed as an outpatient. 5. Hypertension. RECOMMENDATIONS: 1. He is tolerating regular diet now. 2. I would continue pantoprazole or alternative proton pump inhibitor daily over the next month. 3. Follow up in GI clinic in around 4 weeks. Job ID: [id number]
[2018-08-08 07:37] VITALS: BP 177/73; TEMP 97.8
--- NOTE | 2018-08-08 08:42 | PDOC.FM ---
- Subjective Subjective: Pt reports almost entirely resolved pain, some residual RUQ discomfort but overall doing well with good PO toleration. no fever/chills, no n/v - Objective MAR Reviewed: Yes Vital Signs & Weight: Vital Signs (12 hours) Temp Pulse Resp BP Pulse Ox 08/08/18 07:35 97.8 F 61 20 177/73 H 95 08/08/18 04:00 17 08/08/18 00:00 80 18 155/74 H 95 Weight Weight 102.512 kg I&O: 08/07/18 08/08/18 08/09/18 06:59 06:59 06:59 Intake Total 951 1450 Balance 951 1450 Result Diagrams: 08/07/18 08:04 08/07/18 08:04 Phys Exam - Physical Examination Constitutional: NAD HEENT: moist MMs, sclera anicteric Neck: no JVD, supple Respiratory: no wheezing, clear to auscultation bilateral Cardiovascular: RRR, no significant murmur Gastrointestinal: soft mild (improved) TTP of RUQ Musculoskeletal: no edema, pulses present Neurological: non-focal, normal sensation Lymphatic: no nodes Psychiatric: normal affect, A&O x 3 Skin: no rash, normal turgor Dx/Plan (1) Hepatic lesion Code(s): K76.9 - LIVER DISEASE, UNSPECIFIED Status: Acute (2) Hepatitis Status: Acute (3) HTN (hypertension) Code(s): I10 - ESSENTIAL (PRIMARY) HYPERTENSION Status: Acute (4) HLD (hyperlipidemia) Code(s): E78.5 - HYPERLIPIDEMIA, UNSPECIFIED Status: Acute - Plan Plan: 52yo male with pmh of HTN, HLD presenting with abdominal pain RUQ pain with elevated transaminases A- Etiology of pain still unclear. HIDA wnl. GI recs to DC home with ppi and f/ u with them outpt. Thankfully, the pts pain has almost entirely resolved. P- DC today with PPI per GI recs - f/u in clinic with me in 2 weeks - f/u with GI in 4 weeks Diverticulosis A- found on colonoscopy P- Pt counselled on high fiber diet and risks of diverticulitis. HTN Continue home Amlodipine Code Status: FULL DVT ppx: Lovenox PCP: [facility], pt requests to f/u with [facility]. Will give info. Addendum - Attending - Attending Attestation Date/Time: 08/08/18 1106 I personally evaluated the patient and discussed the management with Dr. Cook. I agree with the History, Examination, Assessment and Plan documented above with any addition or exceptions noted below. Patient doing well. GI workup complete and they plan for further discussion outpatient. Stable for discharge at this time.
[2018-08-08] MEDS: Amlodipine 5 MG TAB PO SCH (09:05)
[2018-08-08] MEDS: Enoxaparin Sodium 40 MG/0.4 ML SYRINGE SC SCH (09:06)
--- NOTE | 2018-08-09 10:32 | DIS ---
DATE OF ADMISSION: 08/04/2018 DATE OF DISCHARGE: 08/08/2018 RESIDENT: Broderick Cook MD. DISCHARGE ATTENDING: Supa Hopkins MD. CONSULTS: GI, Dr. Brandan Ralph. PROCEDURES: 1. On 08/04/2018, abdomen ultrasound, impression, hypoechoic lesion measuring approximately 2 x 1.3 cm within the hepatic parenchyma. 2. On 08/04/2018, chest x-ray, impression, unremarkable AP view of chest. 3. On 08/04/2018, abdomen and pelvis CT, impression, subtle possible perigallbladder hepatic lesion, correlate with followup CT images as well as consider hepatic MRI and without gadolinium. Small right adrenal lesion. Followup images recommended. 4. On 08/05/2018, abdomen MRI, impression, fatty infiltration of liver, tiny hepatic cyst, left renal cyst, benign 1-cm adrenal adenoma. 5. On 08/07/2018, hepatobiliary scan, nuclear medicine, impression, normal exam. 6. Colonoscopy. 7. Esophagogastroduodenoscopy. PRIMARY DIAGNOSIS: Hepatitis. SECONDARY DIAGNOSES: 1. Fatty liver. 2. Right upper quadrant pain. 3. Diverticulosis. 4. Hypertension. DISCHARGE MEDICATIONS: 1. Amlodipine 5 mg p.o. q.a.m. 2. Ibuprofen 600 mg p.o. q.6 hours p.r.n. 3. Protonix 40 mg p.o. daily. DISCONTINUED MEDICATIONS: None. HISTORY OF PRESENT ILLNESS AND HOSPITAL COURSE: This is a 52-year-old male, who presented to the emergency department with history of right upper quadrant abdominal pain, that was worse with meals. The patient had a right upper quadrant ultrasound, which ruled out cholecystitis, but did show possible hepatic lesions. Additionally, the patient had abdominal CT scan, which also showed concern for hepatic lesions. The patient had abdominal MRI done and was admitted. MRI showed hepatic cysts as well as other incidental findings as listed above including rectal wall thickening. The patient never had a colonoscopy in past and with rectal wall thickening, there was concern for possible rectal cancer and so GI was consulted for this reason as well as for continued workup of right upper quadrant abdominal pain. HIDA scan was performed, which was also normal. Colonoscopy only showed diverticulosis and a normal rectum. Some biopsies were taken from the duodenum, the workup was inconclusive. The patient had reported that eventually his pain did in fact resolve and the patient was deemed stable for discharge with plans for close GI followup. DISPOSITION: Stable. DISCHARGE INSTRUCTIONS: Location: Home. Diet: Heart healthy. Activity: As tolerated. Followup: Follow up with Dr. Brandan Ralph in 3 to 4 weeks, with Dr. Broderick Cook in 14 days. Job ID: [id number]
== END 2018-08-08 10:05 | disposition home or self-care (01) | DRG 443 ==
LOC: SCSER 16:26 → T4-A 22:42
PROVIDERS: ADMIT Emergency Medicine; ATTEND Emergency Medicine
PROC: 0DB98ZX Excision of Duodenum, Via Natural or Artificial Opening Endoscopic, Diagnostic (ICD-10-PCS; principal; 2018-08-06)
PROC: 0DJD8ZZ Inspection of Lower Intestinal Tract, Via Natural or Artificial Opening Endoscopic (ICD-10-PCS; 2018-08-06)
DX: K76.89 Other specified diseases of liver (principal); K63.5 Polyp of colon; K57.30 Diverticulosis of large intestine without perforation or abscess without bleeding; I10 Essential (primary) hypertension; E78.00 Pure hypercholesterolemia, unspecified; F41.9 Anxiety disorder, unspecified; K76.0 Fatty (change of) liver, not elsewhere classified; K75.9 Inflammatory liver disease, unspecified; D35.00 Benign neoplasm of unspecified adrenal gland; R74.0 Nonspecific elevation of levels of transaminase and lactic acid dehydrogenase [LDH]; Z90.49 Acquired absence of other specified parts of digestive tract; Z88.0 Allergy status to penicillin; Z87.891 Personal history of nicotine dependence
CPT/HCPCS: 36415; 71045; 74178; 74183; 76705; 78227; 80053; 82103; 82390; 83516; 83540; 83550; 83690; 85025; 86704; 86705; 86709; 86803; 87340; 88305; 88312; 88313; 88341; 88342; 88360; 96361; 96374; 96375; A9537; A9577; C9113; J1650; J1885; J2001; J2060; J2270; J2704; Q9967

== ENCOUNTER 2018-09-03 12:26 | Emergency (ER) | payer OTHER ==
[2018-09-03 14:42] LABS: Bilirubin Negative (Negative); Blood, Urine Negative (Negative); Clarity CLEAR (Clear); Glucose, Urine (Dipstick) Negative (Negative); Leukocyte Negative (Negative); Nitrite Negative (Negative); Protein, Urine (Dipstick) Negative (Neg-Trace); Specific Gravity, Urine 1.024 (1.002-1.036)
--- NOTE | 2018-09-03 14:59 | ULT ---
Bilateral testicular ultrasound Grayscale and Doppler color flow imaging performed INDICATION: Palpable abnormality of the right hemiscrotum FINDINGS: Doppler evaluation does reveal flow to each testis. No intratesticular mass. Cyst formation is demonstrated within each epididymis, larger on the right. Right epididymal cyst measures up to 2.5 cm. Left epididymal cyst measures 8 mm. No significant hydrocele. IMPRESSION: No acute testicular torsion or mass. Epididymal cyst formation, bilaterally.
== END 2018-09-03 15:23 | disposition home or self-care (01) ==
LOC: ERS 12:26
DX: N50.3 Cyst of epididymis (principal); E78.5 Hyperlipidemia, unspecified; I10 Essential (primary) hypertension; F41.9 Anxiety disorder, unspecified; Z79.899 Other long term (current) drug therapy
CPT/HCPCS: 76870; 81003; 93976

== ENCOUNTER 2018-09-12 09:49 | Day surgery (SDC) | payer OTHER ==
[2018-09-11 12:21] VITALS: BMI 33.8
[2018-09-12] MEDS ORDERED: Lidocaine 1% PF 5 ML VIAL ONE (13:43)
[2018-09-12] MEDS ORDERED: PROPOFOL 200 MG/20 ML VIAL ONE (13:43)
--- NOTE | 2018-09-12 18:59 | OP ---
DATE OF PROCEDURE: 09/12/2018 PROCEDURE PERFORMED: Esophagogastroduodenoscopy with snare polypectomy. PREOPERATIVE DIAGNOSIS: Submucosal duodenal carcinoid lesions. These were identified by endoscopy last month by Dr. Benton. Biopsy showed submucosal carcinoid from a 3 mm polyp in the bulb of the duodenum and a 5 mm polyp in the bulb of the duodenum. DESCRIPTION OF PROCEDURE: Informed consent was obtained from the patient. He was sedated with total intravenous anesthesia. The esophagus had a single short tongue of Russ which was left alone. It was just biopsied last month. The stomach was unremarkable including retroflex views. There was a submucosal 4 to 5 mm polyp in the inferior portion of the bulb of the duodenum just beyond the pylorus. This had very little polypoid mucosa and there was not much for the snare to grasp. As much tissue around the site that could be snared was grasped with a snare and then removed with snare cautery. The tissue was suctioned and sent for histopathology. The proximity due to pylorus did make access to the polyp somewhat difficult. There was not much loose tissue to allow purchase of the snare for a deeper polypectomy. Similarly, there is a 2 or 3 mm polyp in the superior portion of the duodenal bulb. This was grasped with a snare, but again there was not much tissue to allow good purchase for deeper polypectomy with the snare. Again, snare cautery polypectomy was performed, but on both these lesion, may have removed more superficial tissues and getting well deep into the submucosal layer. Again, the tissue was sent for histopathology. In the second portion, the duodenum was normal. Retroflex views in the stomach were normal. IMPRESSION: 1. Two small submucosal nodules in the inferior duodenal bulb and superior duodenal bulb, removed by snare cautery polypectomy. These were shown to be some mucosal carcinoids by histopathology last month. I am concerned that we are unable to bunch up enough tissue for good purchase to get a deep polypectomy for a complete submucosal resection with a snare. We will see what the pathology shows. 2. Short-segment Russ without any nodularity, left alone today. This was just biopsied last month. 3. Otherwise unremarkable EGD. RECOMMENDATIONS: 1. Await histopathology. 2. Repeat EGD in 6 months. Job ID: [id number]
== END 2018-09-12 13:20 | disposition home or self-care (01) ==
LOC: SDC 09:49
PROVIDERS: ATTEND Internal Medicine Gastroenterology
PROC: 0DB98ZX Excision of Duodenum, Via Natural or Artificial Opening Endoscopic, Diagnostic (ICD-10-PCS; principal; 2018-09-12)
DX: D3A.010 Benign carcinoid tumor of the duodenum (principal); K22.70 Barrett's esophagus without dysplasia; I10 Essential (primary) hypertension; E78.5 Hyperlipidemia, unspecified; K76.0 Fatty (change of) liver, not elsewhere classified; Z79.899 Other long term (current) drug therapy; Z88.0 Allergy status to penicillin
CPT/HCPCS: 88305; 88342; J2001; J2704

== ENCOUNTER 2019-01-30 07:57 | Day surgery (SDC) | payer OTHER ==
[2019-01-29 13:27] VITALS: BMI 35.2
--- NOTE | 2019-01-30 16:45 | OP ---
DATE OF PROCEDURE: 01/30/2019 PROCEDURES PERFORMED: Esophagogastroduodenoscopy with biopsy. PREOPERATIVE DIAGNOSES: Followup of carcinoid tumor and epigastric burning pain. DESCRIPTION OF PROCEDURE: Informed consent was obtained from the patient. He was sedated with total intravenous anesthesia. The bite block was placed and the endoscope was advanced easily to the second portion of the duodenum and retroflexion was performed in the stomach. The esophagus had an irregular Z-line. Biopsies were obtained to rule out Russ esophagus. No obvious esophageal varices were present. The stomach had erythematous gastritis in the body and fundus with snake skin appearance consistent with portal hypertensive gastropathy. There was also erythematous erosive gastritis in the antrum. There was a 2 mm erosion present in the antrum. Biopsies were obtained to rule out H. pylori. Evaluate gastritis further. The biopsies were obtained from the antrum and body. The first portion of the duodenum overall appeared unremarkable. There was one 2 mm tiny polyp that was removed with a cold biopsy forceps. There is no other area of mucosal irregularity in the first portion of the duodenum. The second portion of the duodenum was normal. IMPRESSION: 1. 2 mm benign-appearing mucosal polyp removed by cold biopsy forceps from the first portion of the duodenum on the superior lateral wall. There is no other mucosal irregularity to indicate persistent carcinoid tumors or new carcinoid tumors. 2. Erosive gastritis in the antrum and erythematous gastritis in the body and fundus with snake skin appearance suggestive of portal hypertensive gastropathy. Biopsies were obtained from the antrum and body to rule out Helicobacter pylori. Evaluate the gastritis further. 3. Irregular Z-line, biopsied to rule out Russ esophagus. RECOMMENDATIONS: 1. Await histopathology. 2. Increase proton pump inhibitor twice daily. 3. Follow up in GI clinic in 4 weeks. 4. Repeat EGD in 1 year. Job ID: [id number]
== END 2019-01-30 11:08 | disposition home or self-care (01) ==
LOC: SDC 07:57
PROVIDERS: ATTEND Internal Medicine Gastroenterology
PROC: 0DB88ZX Excision of Small Intestine, Via Natural or Artificial Opening Endoscopic, Diagnostic (ICD-10-PCS; principal; 2019-01-30)
PROC: 0DB68ZX Excision of Stomach, Via Natural or Artificial Opening Endoscopic, Diagnostic (ICD-10-PCS; principal; 2019-01-30)
PROC: 0DB58ZX Excision of Esophagus, Via Natural or Artificial Opening Endoscopic, Diagnostic (ICD-10-PCS; principal; 2019-01-30)
DX: K31.7 Polyp of stomach and duodenum (principal); K29.60 Other gastritis without bleeding; K29.80 Duodenitis without bleeding; K31.9 Disease of stomach and duodenum, unspecified; I10 Essential (primary) hypertension; Z79.899 Other long term (current) drug therapy; Z87.891 Personal history of nicotine dependence; Z88.0 Allergy status to penicillin
CPT/HCPCS: 88305; 88312; 88313

== ENCOUNTER 2020-04-30 06:30 | Outpatient (CLI) | payer OTHER ==
[2020-04-30 23:04] LABS: SARS-CoV-2 MS2 Positive; SARS-CoV-2 N Gene Negative; SARS-CoV-2 S Gene Negative; SARS-CoV-2 by NAA Not Detected (NotDetected); SARS-CoV-2 orf1ab Negative
== END 2020-04-30 06:31 | disposition home or self-care (01) ==
LOC: LABBT 06:30
PROVIDERS: ATTEND Internal Medicine Gastroenterology
DX: Z01.812 Encounter for preprocedural laboratory examination (principal); K22.70 Barrett's esophagus without dysplasia; D3A.00 Benign carcinoid tumor of unspecified site; Z20.828 Contact with and (suspected) exposure to other viral communicable diseases
CPT/HCPCS: 87635; U0003

== ENCOUNTER 2020-05-05 08:06 | Day surgery (SDC) | payer OTHER ==
[2020-05-04 11:14] VITALS: BMI 32.5
[2020-05-05] MEDS ORDERED: Lidocaine 1% PF 5 ML VIAL ONE (10:12)
[2020-05-05] MEDS ORDERED: PROPOFOL 200 MG/20 ML VIAL ONE (10:12)
--- NOTE | 2020-05-05 11:21 | OP ---
DATE OF PROCEDURE: 05/05/2020 PROCEDURE PERFORMED: Esophagogastroduodenoscopy with biopsy and snare polypectomy. 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 Also epigastric pain. DESCRIPTION OF PROCEDURE: Informed consent was obtained from the patient. He was sedated with total intravenous anesthesia. The bite block was placed and the endoscope was advanced easily to the second portion of the duodenum and retroflexion was performed in the stomach. The esophagus had a possible 1 cm segment of Russ esophagus, which was biopsied. There was a possible single column grade 1 varix in this area as well. The fundus and body of the stomach had mucosal changes suggestive of portal hypertensive gastropathy with snakeskin appearance to the mucosa. A 5 mm polyp was removed from the antrum of the stomach by cold snare polypectomy. There were 1 mm and 2 mm polyp in the first portion of the duodenum, just behind the pylorus. These were removed with biopsy forceps. The first and second portions of the duodenum were otherwise normal without any evidence of recurrent carcinoid. IMPRESSION: 1. Two polyps in the first portion of the duodenum, behind the pylorus, measuring 1 mm and 2 mm, removed with cold biopsy forceps. 2. 5 mm polyp was removed from the antrum of the stomach by cold snare. 3. Portal hypertensive gastropathy and a possible grade 1 varix. 4. Possible 1 cm segment Russ's, biopsied. RECOMMENDATIONS: 1. Await histopathology. 2. Follow up in the office to re-evaluate his liver and reassess his epigastric pain. Job ID: [id number]
== END 2020-05-05 11:55 | disposition home or self-care (01) ==
LOC: SDC 08:06
PROVIDERS: ATTEND Internal Medicine Gastroenterology
PROC: 0DB58ZX Excision of Esophagus, Via Natural or Artificial Opening Endoscopic, Diagnostic (ICD-10-PCS; principal; 2020-05-05)
PROC: 0DB98ZX Excision of Duodenum, Via Natural or Artificial Opening Endoscopic, Diagnostic (ICD-10-PCS; principal; 2020-05-05)
DX: K31.7 Polyp of stomach and duodenum (principal); K22.70 Barrett's esophagus without dysplasia; D3A.00 Benign carcinoid tumor of unspecified site; K21.9 Gastro-esophageal reflux disease without esophagitis; I10 Essential (primary) hypertension; Z79.899 Other long term (current) drug therapy; Z87.891 Personal history of nicotine dependence; Z88.0 Allergy status to penicillin
CPT/HCPCS: 88305; 88312; 88313; J0690; J2704

== ENCOUNTER 2020-08-13 09:09 | Outpatient (CLI) | payer OTHER | END 2020-08-13 09:10 | disposition home or self-care (01) | LOC: ULT 09:09 | PROVIDERS: ATTEND Internal Medicine Gastroenterology | DX: K22.70 Barrett's esophagus without dysplasia (principal); D3A.00 Benign carcinoid tumor of unspecified site; R94.5 Abnormal results of liver function studies; R16.2 Hepatomegaly with splenomegaly, not elsewhere classified; K76.0 Fatty (change of) liver, not elsewhere classified | CPT/HCPCS: 76705 ==

== ENCOUNTER 2021-12-09 14:53 | Emergency (ER) | payer OTHER ==
[~2021-12-09 14:53] MED LIST changes: -Iopamidol 300 61% 100 ML VIAL FS ONE; +Iopamidol-370 76% 500 ML 1 ML ONE
[2021-12-09 15:33] LABS: #Eosinphils 0.2 thou/uL (0.0-0.7); #Lymphocytes 1.5 thou/uL (1.20-3.40); #Monocytes 0.8 thou/uL (0.11-0.59); #Neutrophils 7.2 thou/uL (1.40-6.50); %Basophils 0.5 % (0.0-1.0); %Eosinophils 1.7 % (0.0-10.0); %Lymphocytes 15.8 % (21.0-51.0); %Monocytes 7.9 % (0.0-10.0); %Neutrophils 74.1 % (42.0-75.0); Hemoglobin 13.8 g/dL (14.0-18.0); Mean Corpuscular HGB CONC 33.6 g/dL (32.0-36.0); Mean Corpuscular Hemoglobin 30.2 pg (27.0-31.0); Mean Corpuscular Volume 89.8 fL (78.0-98.0); Mean Platelet Volume 8.5 fL (7.4-10.4); Platelet Count 135 thou/uL (130-400); RBC Distribution Width 12.5 % (11.5-14.5); Red Blood Cell (RBC) Count 4.57 mill/uL (4.70-6.10); White Blood Cell (WBC) Count 9.8 thou/uL (4.8-10.8)
[2021-12-09 16:05] LABS: ALT (SGPT) 24 U/L (8-55); AST (SGOT) 36 U/L (5-34); Albumin 4.7 g/dL (3.5-5.0); Alkaline Phosphatase 110 U/L (40-110); Anion Gap 20 mmol/L (10-20); BUN (Urea Nitrogen) 17 mg/dL (8.4-25.7); Bilirubin, Total 2.8 mg/dL (0.2-1.2); Calc. Creatinine Clearance 0 mL/min (70-130); Calcium 10.2 mg/dL (7.8-10.44); Carbon Dioxide 20 mmol/L (22-29); Chloride 102 mmol/L (98-107); Estimated GFR 40; Globulin 3.4 g/dL (2.4-3.5); Glucose 130 mg/dL (70-105); Lipase 27 U/L (8-78); Potassium 3.8 mmol/L (3.5-5.1); Protein, Total 8.1 g/dL (6.0-8.3); Sodium 138 mmol/L (136-145)
[2021-12-09 20:42] LABS: Bilirubin Negative (Negative); Blood, Urine Negative (Negative); Clarity Clear (Clear); Glucose, Urine (Dipstick) Normal (Negative); Ketone, Urine 10 mg/dL (Negative); Leukocyte Negative Leu/uL (Negative); Nitrite Negative (Negative); Protein, Urine (Dipstick) 20 mg/dL (Neg-Trace); Specific Gravity, Urine 1.023 (1.002-1.036); Urobilinogen Normal mg/dL (Less than 2); pH, Urine 5.5 (5.0-9.0)
== END 2021-12-09 21:33 | disposition home or self-care (01) ==
LOC: ERS 14:53
DX: R10.816 Epigastric abdominal tenderness (principal); E78.5 Hyperlipidemia, unspecified; I10 Essential (primary) hypertension
CPT/HCPCS: 36415; 71045; 74177; 80053; 81003; 83690; 84484; 85025; 93005; Q9967

== ENCOUNTER 2021-12-13 14:29 | Emergency (ER) | payer OTHER ==
[2021-12-13] MEDS ORDERED: Morphine 4 MG/ML VIAL ONE (15:39)
[2021-12-13] MEDS ORDERED: Ondansetron PF 4 MG/2 ML Vial ONE (15:39)
[2021-12-13] MEDS ORDERED: Acetaminophen 500 MG TAB ONE (15:54)
[2021-12-13 16:09] LABS: #Eosinphils 0.1 thou/uL (0.0-0.7); #Lymphocytes 1.9 thou/uL (1.20-3.40); #Monocytes 0.9 thou/uL (0.11-0.59); #Neutrophils 9.9 thou/uL (1.40-6.50); %Basophils 0.3 % (0.0-1.0); %Eosinophils 0.5 % (0.0-10.0); %Lymphocytes 14.9 % (21.0-51.0); %Neutrophils 77.2 % (42.0-75.0); Hemoglobin 13.9 g/dL (14.0-18.0); Mean Corpuscular HGB CONC 33.3 g/dL (32.0-36.0); Mean Corpuscular Hemoglobin 29.5 pg (27.0-31.0); Mean Corpuscular Volume 88.7 fL (78.0-98.0); Mean Platelet Volume 8.4 fL (7.4-10.4); Platelet Count 184 thou/uL (130-400); RBC Distribution Width 12.2 % (11.5-14.5); Red Blood Cell (RBC) Count 4.72 mill/uL (4.70-6.10); White Blood Cell (WBC) Count 12.9 thou/uL (4.8-10.8)
[2021-12-13 16:30] LABS: ALT (SGPT) 20 U/L (8-55); AST (SGOT) 24 U/L (5-34); Albumin 4.5 g/dL (3.5-5.0); Alkaline Phosphatase 99 U/L (40-110); Anion Gap 16 mmol/L (10-20); BUN (Urea Nitrogen) 27 mg/dL (8.4-25.7); Bilirubin, Total 1.9 mg/dL (0.2-1.2); Calc. Creatinine Clearance 0 mL/min (70-130); Calcium 9.7 mg/dL (7.8-10.44); Carbon Dioxide 22 mmol/L (22-29); Chloride 105 mmol/L (98-107); Estimated GFR 32; Globulin 2.8 g/dL (2.4-3.5); Glucose 90 mg/dL (70-105); Lipase 39 U/L (8-78); Potassium 4.2 mmol/L (3.5-5.1); Protein, Total 7.3 g/dL (6.0-8.3); Sodium 139 mmol/L (136-145)
[2021-12-13 16:40] LABS: Bacteria/HPF None Seen HPF (None Seen); Bilirubin 1+ (Negative); Blood, Urine Negative (Negative); Clarity Turbid (Clear); Glucose, Urine (Dipstick) Normal (Negative); Ketone, Urine Trace mg/dL (Negative); Leukocyte Negative Leu/uL (Negative); Nitrite Negative (Negative); Protein, Urine (Dipstick) 70 mg/dL (Neg-Trace); RBC/HPF 0-3 HPF (0-3); Specific Gravity, Urine 1.025 (1.002-1.036); Squamous Epithelial 0-3 HPF (0-3); WBC/HPF 0-3 HPF (0-3)
== END 2021-12-13 19:23 | disposition home or self-care (01) ==
LOC: ERS 14:29
DX: R10.84 Generalized abdominal pain (principal); I10 Essential (primary) hypertension; E78.5 Hyperlipidemia, unspecified; D3A.00 Benign carcinoid tumor of unspecified site; Z79.84 Long term (current) use of oral hypoglycemic drugs; Z79.899 Other long term (current) drug therapy
CPT/HCPCS: 36415; 76705; 80053; 81003; 81015; 83690; 84484; 85025; 93005; 96360; 96361; J2270; J2405